=== PATIENT | female | born 1945 | race Caucasian/White ===

== ENCOUNTER 2017-10-06 11:45 | Emergency (ER) | payer OTHER ==
[~2017-10-06] VITALS: Ht 167.6 cm; Wt 82.3 kg
[~2017-10-06 11:45] MED LIST: ADVIN10/60 INH; CALC200T PO; CLB/200 PO; CZR25 PO; FELO10TA PO; LEVO125T72 PO; METF1000 PO; MULT-845 PO; OMEP20CA9 PO; PRED1SUS3 OPR; SIMV10TA5 PO; TRIA37.5 PO
[2017-10-06 12:06] VITALS: TEMP 36.7; Ht 167.6 cm; Wt 82.3 kg
--- NOTE | 2017-10-06 12:15 | DIAGNOSTIC IMAGING REPORT ---
CHEST ONE VIEW PORTABLE CLINICAL HISTORY: syncope mental status change COMPARISON STUDY: No previous studies for comparison. FINDINGS: The bones soft tissues and hemidiaphragms are normal. The cardiomediastinal silhouette is normal. The lungs are clear. The pulmonary vasculature is normal. IMPRESSION: Negative chest. The above report was generated using voice recognition software. It may contain grammatical, syntax or spelling errors. Electronically signed by: Tal Leal M.D. 10/06/2017 12:13 PM Dictated Date/Time: 10/06/2017 12:12 PM
[2017-10-06 12:34] LABS: BASO % 0.4 %; BASO ABS # 0.03 K/uL (0-0.2); EOS % 7.3 %; EOS ABS # 0.56 K/uL (0-0.5); HEMATOCRIT 44.8 % (37-47); IG# 0.01 K/uL (0.00-0.02); LYMPH % 23.2 %; LYMPH ABS # 1.78 K/uL (1.2-3.4); MEAN CELL VOLUME 86.2 fL (80-100); MEAN CORPUSCULAR HEMOGLOBIN 30.8 pg (25-34); MEAN CORPUSCULAR HGB CONC 35.7 g/dl (32-36); MEAN PLATELET VOLUME 10.5 fL (7.4-10.4); MONO % 6.1 %; MONO ABS # 0.47 K/uL (0.11-0.59); NEUT % 62.9 %; NEUT ABS # 4.81 K/uL (1.4-6.5); PLATELET COUNT 181 K/uL (130-400); RED CELL DISTRIBUTION WIDTH CV 12.9 % (11.5-14.5); RED CELL DISTRIBUTION WIDTH SD 40.9 fL (36.4-46.3); WHITE BLOOD COUNT 7.66 K/uL (4.8-10.8)
[2017-10-06] MEDS ORDERED: SODIUM CHLORIDE 0.9% 500ML 500 ML IV STA (12:54)
[2017-10-06 12:55] LABS: ALBUMIN 4.5 gm/dl (3.4-5.0); CALCIUM 9.4 mg/dl (8.5-10.1); CREATININE 1.15 mg/dl (0.60-1.20)
[2017-10-06 13:07] LABS: CKMB 1.4 ng/ml (0.5-3.6)
--- NOTE | 2017-10-06 13:15 | EMERGENCY ROOM VISIT NOTE ---
History Report prepared by Brandy: Harini Diego Under the Supervision of: Dr. Royal Mclaughlin M.D. First contact with patient: 12:50 Chief Complaint: SYNCOPE (NEAR SYNCOPE) Stated Complaint: NEAR SYNCOPE Nursing Triage Summary: pt walked to elevator this am, while standing there became hot, weak and lightheaded. pt didn't faint. bp from [facility] staff was 50/40. feels tired and weak, denied dizzines when statnding History of Present Illness The patient is a 72 year old white female with a past medical history of type 2 diabetes who presents to the ED with a cc of near syncopal episode beginning just prior to arrival. Positive sweats, weakness. Negative cough, fevers, chills , nausea, vomiting, or recent changes in medications. The patient was at a town heard meeting when she started to feel tired. The patient reports she had to sit down because she felt so fatigued. She reports there was a nurse there who took her blood pressure and she states it was 50/40. Presently, the patient still feels fatigued. Source of History: patient Onset: just prior to arrival Position: other (generalized) Quality: other (near syncope) Timing: other (episode ) Associated Symptoms: + headache, + fatigue, + weakness, No fevers, No chills , No cough, No nausea, No vomiting Review of Systems See HPI for pertinent positives and negatives. A total of ten systems were reviewed and were otherwise negative. Past Medical & Surgical Medical Problems: (1) Type 2 diabetes mellitus Family History Patient reports no known family medical history. Social History Smoking Status: Never Smoker Marital Status: Housing Status: lives with significant other Occupation Status: retired Current/Historical Medications Scheduled Aspirin (Aspirin Ec), 81 MG PO DAILY Atorvastatin (Lipitor), 40 MG PO HS Calcium Carbonate-Vitamin D (Oscal 500/200 D-3), 1 TAB PO QAM Celecoxib (CeleBREX), 200 MG PO QAM Felodipine (Plendil Er), 10 MG PO QAM Fluticasone Prop/Salmeterol (Advair Diskus 100/50 60 Dose), 1 PUFF INH BID Levothyroxine Sodium (Synthroid), 125 MCG PO QAM Losartan Potassium (Losartan Potassium), 1 TAB PO QAM Metformin Hcl (Glucophage), 1,000 MG PO BID Montelukast Sodium (Singulair), 10 MG PO DAILY Multiple Vitamins W/ Minerals (Centrum Silver Adult 50+), 1 TAB PO QAM Omeprazole (Prilosec), 20 MG PO TID Triamcinolone Acetonide (Nasal (Nasal Allergy 24 Hour), 2 SPRAYS NA DAILY Triamterene/Hctz (Dyazide 37.5MG/25MG), 1 TAB PO QAM Scheduled PRN Albuterol Sulfate (Proventil Hfa), 2 PUFFS PO Q4H PRN for Cough Cyclobenzaprine Hcl (Flexeril), 10 MG PO UD PRN for PRN [Chlor Trimeton], 4 MG PO UD PRN for PRN Miscellaneous Medications Doxylamine-Dm (Robitussin Nightime Cough 3.125-7.5 mg/5Ml) Allergies Coded Allergies: Naproxen (Verified Allergy, Unknown, ITCHY, 10/06/17) Shellfish (Verified Allergy, Unknown, gi, 10/06/17) JANINA Inhibitors (Verified Adverse Reaction, Unknown, COUGHING, 10/06/17) Physical Exam Vital Signs Date Time Temp Pulse Resp B/P (MAP) Pulse Ox O2 Delivery O2 Flow Rate FiO2 10/06/17 14:38 78 18 148/66 96 Room Air 10/06/17 13:26 75 150/67 Room Air 10/06/17 12:19 73 130/62 85 147/77 78 143/61 10/06/17 12:06 36.7 82 22 132/63 97 Room Air 10/06/17 11:57 77 Physical Exam GENERAL: Awake, alert, well-appearing, NAD HENT: Normocephalic, atraumatic. Dry mucus membranes. EYES: Normal conjunctiva. Sclera non-icteric. NECK: Supple. No nuchal rigidity. FROM. RESPIRATORY: CTAB, no rhonchi, wheezing, crackles CARDIAC: RRR, no MRG ABDOMEN: Soft, NTND, BS+ MSK: No chest wall TTP, no LE edema NEURO: GCS 15, CN 2-12 intact, moves all 4s on command SKIN: No rash or jaundice noted. Medical Decision & Procedures ER Provider Diagnostic Interpretation: Radiology results as stated below per my review and radiologist interpretation: CHEST ONE VIEW PORTABLE FINDINGS: The bones soft tissues and hemidiaphragms are normal. The cardiomediastinal silhouette is normal. The lungs are clear. The pulmonary vasculature is normal. IMPRESSION: Negative chest. The above report was generated using voice recognition software. It may contain grammatical, syntax or spelling errors. Electronically signed by: Tal Leal M.D. Laboratory Results 10/06/17 12:17 Red Blood Count 5.20, Mean Corpuscular Volume 86.2, Mean Corpuscular Hemoglobin 30.8, Mean Corpuscular Hemoglobin Concent 35.7, Mean Platelet Volume 10.5, Neutrophils (%) (Auto) 62.9, Lymphocytes (%) (Auto) 23.2, Monocytes (%) (Auto) 6.1, Eosinophils (%) (Auto) 7.3, Basophils (%) (Auto) 0.4, Neutrophils # (Auto) 4.81, Lymphocytes # (Auto) 1.78, Monocytes # (Auto) 0.47, Eosinophils # (Auto) 0.56, Basophils # (Auto) 0.03 10/06/17 12:17 Test 10/06/17 11:58 10/06/17 12:17 White Blood Count 7.66 K/uL (4.8-10.8) Red Blood Count 5.20 M/uL (4.2-5.4) Hemoglobin 16.0 g/dL (12.0-16.0) Hematocrit 44.8 % (37-47) Mean Corpuscular Volume 86.2 fL (80-100) Mean Corpuscular Hemoglobin 30.8 pg (25-34) Mean Corpuscular Hemoglobin Concent 35.7 g/dl (32-36) Platelet Count 181 K/uL (130-400) Mean Platelet Volume 10.5 fL (7.4-10.4) Neutrophils (%) (Auto) 62.9 % Lymphocytes (%) (Auto) 23.2 % Monocytes (%) (Auto) 6.1 % Eosinophils (%) (Auto) 7.3 % Basophils (%) (Auto) 0.4 % Neutrophils # (Auto) 4.81 K/uL (1.4-6.5) Lymphocytes # (Auto) 1.78 K/uL (1.2-3.4) Monocytes # (Auto) 0.47 K/uL (0.11-0.59) Eosinophils # (Auto) 0.56 K/uL (0-0.5) Basophils # (Auto) 0.03 K/uL (0-0.2) RDW Standard Deviation 40.9 fL (36.4-46.3) RDW Coefficient of Variation 12.9 % (11.5-14.5) Immature Granulocyte % (Auto) 0.1 % Immature Granulocyte # (Auto) 0.01 K/uL (0.00-0.02) Anion Gap 11.0 mmol/L (3-11) Est Creatinine Clear Calc Drug Dose 46.4 ml/min Estimated GFR () 54.3 Estimated GFR (Non- 46.8 BUN/Creatinine Ratio 15.4 (10-20) Calcium Level 9.4 mg/dl (8.5-10.1) Total Bilirubin 0.8 mg/dl (0.2-1) Aspartate Amino Transf (AST/SGOT) 50 U/L (15-37) Alanine Aminotransferase (ALT/SGPT) 47 U/L (12-78) Alkaline Phosphatase 86 U/L (45-117) Total Creatine Kinase 70 U/L (26-192) Creatine Kinase MB 1.4 ng/ml (0.5-3.6) Creatine Kinase MB Ratio 2.0 (0-3.0) Total Protein 8.0 gm/dl (6.4-8.2) Albumin 4.5 gm/dl (3.4-5.0) Globulin 3.5 gm/dl (2.5-4.0) Albumin/Globulin Ratio 1.3 (0.9-2) Beta-Hydroxybutyric Acid 2.37 mg/dL (0.2-2.81) Thyroid Stimulating Hormone (TSH) 3.250 uIu/ml (0.300-4.500) Laboratory results reviewed by me Medications Administered Medications (Trade) Dose Ordered Sig/Swapnil Route Start Time Stop Time Status Last Admin Dose Admin Sodium Chloride 500 ml @ 999 mls/hr Q31M STAT IV 10/06/17 12:54 10/06/17 13:24 DC 10/06/17 13:27 999 MLS/HR ECG Per My Interpretation Indication: weakness Rate (beats per minute): 80 Rhythm: normal sinus Findings: other (normal intervals normal axis no STS changes or TWI) ED Course 1303: The patient was evaluated in room C1B. A complete history and physical exam was performed. 1348: I updated the patient on her test results. 1410: I reevaluated the patient. Discussed results and discharge instructions: She verbalized understanding and agreement. The patient is ready for discharge. Medical Decision The patient is a 72 year old white female with a past medical history of type 2 diabetes who presents to the ED with a cc of near syncopal episode beginning just prior to arrival. Nursing notes reviewed. Ancillary studies and prior records reviewed. Differential diagnosis: Etiologies such as metabolic, infection, hypo/hyperglycemia, electrolyte abnormalities, cardiac sources, intracerebral event, toxicologic, neurologic, as well as others were entertained. Patient was seen and evaluated the bedside. 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 Patient was in an elevator when she felt very weak and fatigued. Patient denies any palpitations or feeling flushed. No history of seizures. Patient did not have a syncopal episode. Patient denies any nausea, vomiting, chest pain, shortness of breath, abdominal pain. Patient did have blood work completed, EKG, troponin, chest x-ray. Patient was also given IV fluids. Patient was also encouraged to take p.o. fluids. The patient was able to talk tolerate p.o. without issue. Patient chest x-ray was clear. EKG nonischemic and with no overt arrhythmia. Patient troponin was not elevated. Patient's other blood work is fairly unremarkable. Patient is not anemic and the patient has no apparent electrolyte abnormalities. Patient did have some hyperglycemia but this is known. Anion gap normal bicarb normal. Less likely DKA. I discussed with the patient that she likely had a brief loss vagal tone and this can be precipitated after periods of standing. Patient denies a change in positions making this worse or less likely orthostasis. Patient denies any palpitations or chest pain or shortness of breath less likely ACS or arrhythmia. Patient was deemed suitable for outpatient follow-up and treatment at this time. Patient was given strict follow-up, discharge, and return precautions. All questions were answered. Patient was deemed suitable for outpatient follow-up at this time. Patient agreed with the plan of care and was safely discharged home. Medication Reconcilliation Current Medication List: was personally reviewed by me Blood Pressure Screening Patient's blood pressure: Elevated blood pressure Blood pressure disposition: Referred to PCP Impression Primary Impression: Lightheaded Additional Impression: Hyperglycemia Scribe Attestation The scribe's documentation has been prepared under my direction and personally reviewed by me in its entirety. I confirm that the note above accurately reflects all work, treatment, procedures, and medical decision making performed by me. Departure Information Dispostion Home / Self-Care Referrals No Doctor, Assigned (PCP) Forms HOME CARE DOCUMENTATION FORM, IMPORTANT VISIT INFORMATION Patient Instructions Dizziness Fainting Poss Causes, [facility] Additional Instructions Please return to the emergency department if you have worsening or recurrent symptoms not amenable to at-home treatment. Please call for a follow-up appointment with her primary care physician. Please take your medications as prescribed. If you have other concerns and/or complaints please feel free to also call your primary care physician's office or return the ED for further evaluation, management, and treatment. You may take 800 mg Ibuprofen every 6 hours as needed for pain/fever with food unless told by your physician not to take NSAIDs. You may take tylenol 1000 mg every 6 hours as needed for pain/fever unless told by your physician to not take it or have liver problems. You may take motrin and tylenol separately or at the same time. Take your medications as prescribed. You have been examined and treated today on an emergency basis only. This is not a substitute for, or an effort to provide, complete comprehensive medical care. It is impossible to recognize and treat all injuries or illnesses in a single emergency department visit. It is therefore important that you follow up closely with [facility], your PCP, and/or your specialist(s). Call as soon as possible for an appointment. Thank you for your time and consideration. I look forward to speaking with you again soon. Please don't hesitate to call us if you have any questions. Problem Qualifiers
[2017-10-06] MEDS ORDERED: CHLOR TRIMETON PO (13:16)
[2017-10-06] MEDS ORDERED: CYCL10TA6 PO (13:16)
[2017-10-06] MEDS ORDERED: ALBUAER PO (13:16)
[2017-10-06] MEDS ORDERED: DOXY1LIQ (13:16)
[2017-10-06] MEDS ORDERED: MONT1TAB3 PO (13:16)
[2017-10-06] MEDS ORDERED: LPT40 PO (13:16)
[2017-10-06] MEDS ORDERED: ASPI81TA28 PO (13:16)
[2017-10-06] MEDS ORDERED: TRIA1SPR10 (13:16)
[2017-10-06 14:38] VITALS: BP 148/66; PULSE 78; O2SAT 96
== END 2017-10-06 14:49 | disposition home or self-care (01) ==
LOC: EDBD 11:45 → C.EDC 11:46
DX: R42 Dizziness and giddiness (principal); E11.65 Type 2 diabetes mellitus with hyperglycemia; Z79.82 Long term (current) use of aspirin; Z79.84 Long term (current) use of oral hypoglycemic drugs; Z79.899 Other long term (current) drug therapy; Z88.6 Allergy status to analgesic agent; Z91.013 Allergy to seafood